=== PATIENT | female | born 1995 | race Two or more races ===

== ENCOUNTER 2024-12-09 19:13 | Emergency (ER) | payer BC, SELFPAY ==
[2024-12-09 19:13] VITALS: BMI 33.2
[2024-12-09 19:38] VITALS: BP 132/86; PULSE 64; RESP 18; TEMP 36.9; O2SAT 97
--- NOTE | 2024-12-09 19:43 | PD.EDRME ---
Rapid Medical Screening Exam RME Arrival date/time: 12/09/24 19:13 Chief Complaint: Dental/Oral/Throat Time Seen by Provider: 12/09/24 19:27 Vital signs: Vital Signs Temperature 98.5 F 12/09/24 19:38 Pulse Rate 64 12/09/24 19:38 Respiratory Rate 18 12/09/24 19:38 Blood Pressure 132/86 H 12/09/24 19:38 Pulse Oximetry (%) 97 12/09/24 19:38 Oxygen Delivery Method Room Air 12/09/24 19:38 Vital signs reviewed by provider: Yes RME Narrative: 29-year-old female presents to the ED with a complaint of sore throat x 2 days. She denies fever or chills, runny nose nasal congestion, ear pain, cough or shortness of breath. She has painful swallowing. She did have 1 bout of emesis. Pharynx with mild erythema. No tonsillar enlargement or exudate.
[2024-12-09 20:37] LABS: Strep A Rapid Negative (Negative)
--- NOTE | 2024-12-09 20:58 | EDNOTE_ITS ---
ED General RME/HPI General Chief complaint: Dental/Oral/Throat Stated complaint: SORE THROAT X2DAYS Time Seen by Provider: 12/09/24 19:27 Arrival date/time: 12/09/24 19:13 RME / HPI RME / HPI narrative: 29-year-old female presents to the ED with a complaint of sore throat x 2 days. She denies fever or chills, runny nose nasal congestion, ear pain, cough or shortness of breath. She has painful swallowing. She did have 1 bout of emes is. Pharynx with mild erythema. No tonsillar enlargement or exudate. Related Data Previous Rx's ?Medication ?Instructions ?Recorded amoxicillin 875 mg-potassium 1 tab PO BID Sinusitis, 0 12/09/24 clavulanate 125 mg tablet pharyngitis #20 tabs Allergies Allergy/AdvReac Type Severity Reaction Status Date / Time No Known Allergies Allergy Verified 06/19/21 15:50 Review of Systems Review of Systems Systems Reviewed: All systems reviewed, normal except as documented Past Medical History Past Medical History CARDIAC: Negative Cardiac Disorders or Congestive Heart Failure RESPIRATORY: Negative Chronic Obstructive Pulmonary Disease (COPD) or Asthma GENITOURINARY: Negative Renal Disease ENDOCRINE: Negative Diabetes Mellitus Type 1 or Diabetes Mellitus Type 2 HEMATOLOGIC: Negative Sickle Cell Disease Social History SMOKING STATUS: Current some day smoker ED Exam Narrative Physical exam: 29-year-old female, no acute distress. TMs without erythema. Nares pale and boggy. Mild sinus tenderness in the frontal and maxillary areas. Pharynx with mild erythema. No tonsillar enlargement or exudate. Neck is supple, no significant adenopathy noted. Lungs are clear, cardio: Regular rate and rhythm without murmurs. Abdomen is soft and nontender. Course Course Course Narrative: Rapid strep obtained and is negative. Quality Measures none Orders Category Date Time Status Strep A Rapid Stat Lab 12/09/24 19:49 Completed Vital Signs Vital signs: Vital Signs Temperature 98.5 F 12/09/24 19:38 Pulse Rate 64 12/09/24 19:38 Respiratory Rate 18 12/09/24 19:38 Blood Pressure 132/86 H 12/09/24 19:38 Pulse Oximetry (%) 97 12/09/24 19:38 Oxygen Delivery Method Room Air 12/09/24 19:38 Discharge Plan Plan Patient Disposition: HOME (Self Care) Discharge Disposition comment: Stable Prescriptions/Referrals Prescriptions/Med Rec: New amoxicillin-pot clavulanate 875-125 mg tablet 1 tab PO BID Qty: 20 0RF Referrals: No Primary/Family,Physician [Primary Care Provider] - In 1 week Problem List Clinical Impression: Sinusitis, Pharyngitis Patient/Caregiver Discharge Instructions Education Materials: Self-Care for Sore Throats, ED Sinusitis (Antibiotic Treatment) Additional Instructions: Follow-up with your primary care physician in 24 to 48 hours. Return to the ED for any new or worsening symptoms. 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 Akbar MDM Narrative MDM hospital course (for use when minimal MDM required): 29-year-old female presents to the ED with a complaint of sore throat x 2 days. She denies fever or chills, runny nose nasal congestion, ear pain, cough or shortness of breath. She has painful swallowing. She did have 1 bout of emesis. 29-year-old female, no acute distress. TMs without erythema. Nares pale and boggy. Mild sinus tenderness in the frontal and maxillary areas. Pharynx with mild erythema. No tonsillar enlargement or exudate. Neck is supple, no significant adenopathy noted. Lungs are clear, cardio: Regular rate and rhythm without murmurs. Abdomen is soft and nontender. Rapid strep obtained and is negative. Clinical Information Provided by: patient Medical Records reviewed None Meds/Rx considered, not ordered None Labs/Rad/Tests considered, not ordered None Chronic Illness/Social Conditions which may negatively complicate care or outcome(s)-explain: None or not applicable EKG EKG not done Labs Labs: Interpreted by ca Lab(s) Interpretation(s): Rapid strep negative Imaging Imaging Interpretation(s): N/A Medication Administration(s) none Diagnosis Differential Diagnosis ED Complaint MDM: Viral URI, sinusitis, strep pharyngitis, bronchitis Diagnoses ruled out and/or further discussions: Strep pharyngitis
== END 2024-12-09 21:42 | disposition home or self-care (01) ==
PROVIDERS: Physician Assistant; Emergency Provider Emergency Medicine
DX: J02.9 Acute pharyngitis, unspecified (principal); J32.9 Chronic sinusitis, unspecified; F17.210 Nicotine dependence, cigarettes, uncomplicated
CPT/HCPCS: 87651; 99283